=== PATIENT | male | born 1955 | race Caucasian/White ===

== ENCOUNTER → 2020-10-03 | Outpatient (CLI) | payer OTHER ==
--- NOTE | 2020-10-03 12:58 | XR ---
EXAMINATION TYPE: XR chest 2V DATE OF EXAM: 10/03/2020 COMPARISON: CT 05/01/2015 CT chest HISTORY: Hernia, presurgical chest x-ray TECHNIQUE: Frontal and lateral views of the chest are obtained. FINDINGS: Heart size is within normal limits. No focal consolidation, pneumothorax or pleural effusi on. Minimal linear scarring at the left lateral chest. Osseous structures show mild degenerative falcon ges. Hyperaeration lungs and flattening of the diaphragms suggestive of COPD. IMPRESSION: 1. Findings are suggestive of COPD. No acute pulmonary disease.
== END | disposition home or self-care (01) ==
LOC: RADXRMAIN 12:30
PROVIDERS: ATTEND Surgery Plastic and Reconstructive Surgery
DX: R94.31 Abnormal electrocardiogram [ECG] [EKG] (principal); K46.9 Unspecified abdominal hernia without obstruction or gangrene
CPT/HCPCS: 71046; 93005

== ENCOUNTER → 2020-10-11 | Outpatient (CLI) | payer MEDICAID ==
--- NOTE | 2020-10-11 11:03 | CT ---
EXAMINATION TYPE: CT abdomen pelvis w con DATE OF EXAM: 10/11/2020 COMPARISON: NONE HISTORY: 65-year-old male K56.609, Intestinal obstruction TECHNIQUE: Contiguous axial scanning of the abdomen and pelvis following administration of 100 ml Iso yasmany 300 IV contrast. Delayed images through the kidneys and coronal/sagittal reconstructions perform ed. CT DLP: 1928.50 mGycm Automated exposure control for dose reduction was used. FINDINGS: Heart normal size without pericardial effusion. Lung bases clear without pleural effusion. No focal liver lesion or biliary ductal dilatation. Portal venous system is patent. Small layering calculi within the nondistended gallbladder. Adrenal glands, spleen, and pancreas within normal limits. Bilateral renal cysts measuring up to 5.5 cm on the right and 4.2 cm on the left. Nonobstructive 5 mm left midpole renal calculus. No hydronephrosis on either side. There is an umbilical hernia containing a loop of small bowel. Oral contrast has progressed to the sp lenic flexure of the colon. Some of the small bowel loops may measure at the upper limits of normal a t 2.8 cm but no abnormal dilatation is otherwise seen. Normal appendix. Mild stool burden. Sigmoid diverticulosis. No pericolonic inflammatory change. No mesenteric or retroperitoneal lymphadenopathy. Moderate circumferential bladder wall thickening. Prostate gland is enlarged measuring 6.6 cm wide wi th areas of heterogeneous enhancement within, for example, axial image 76. No abnormal fluid collecti on in the pelvis or pelvic lymphadenopathy. Bones: Moderate degenerative change of the hips. Tiny sclerotic foci in both acetabula and medial rig ht iliac bone likely bone islands. No osseous destructive process. IMPRESSION: 1. INGESTED ORAL CONTRAST HAS MADE ITS WAY TO THE SPLENIC FLEXURE OF THE COLON. NO DISCRETE BOWEL OBS TRUCTION IS IDENTIFIED. HOWEVER, THERE IS a small umbilical hernia containing a loop of small bowel a nd some of the mid abdominal small bowel loops are distended to the upper limits of normal at 2.8 cm. A mild relative partial obstruction is possible. 2. Moderate circumferential bladder wall thickening could represent chronic bladder wall hypertrophy or cystitis. The prostate gland is enlarged measuring 6.6 cm. Areas of heterogeneous prostate enhance ment could reflect BPH or underlying foci of prostate cancer. Correlate with PSA values and further c linical assessment as indicated. 3. Cholelithiasis, benign bilateral renal cysts measuring up to 5.5 cm, nonobstructive 5 mm left janet l calculus, and sigmoid diverticulosis.
== END | disposition home or self-care (01) ==
LOC: RADCTMAIN 07:27
PROVIDERS: ATTEND Surgery Plastic and Reconstructive Surgery
DX: K56.609 Unspecified intestinal obstruction, unspecified as to partial versus complete obstruction (principal); K57.30 Diverticulosis of large intestine without perforation or abscess without bleeding; K80.20 Calculus of gallbladder without cholecystitis without obstruction; N20.0 Calculus of kidney; N28.1 Cyst of kidney, acquired; N40.0 Benign prostatic hyperplasia without lower urinary tract symptoms; K42.9 Umbilical hernia without obstruction or gangrene
CPT/HCPCS: 74177; Q9967

== ENCOUNTER → 2020-12-08 | Day surgery (SDC) | payer MEDICAID ==
[2020-12-05 10:27] VITALS: BMI 24.1
[~2020-12-08] MED LIST: ACETAMINOPHEN TAB 500 MG TAB PO PRN; BUPIVACAINE (PF) 0.25% 30 ML VIAL SQ ONE; DEXAMETHASONE SOD PHOSPHATE 4 MG/ML 1 ML VIAL IV ONE; DEXAMETHASONE SOD PHOSPHATE 4 MG/ML 1 ML VIAL IVP ONE; DEXAMETHASONE SOD PHOSPHATE 4 MG/ML 1 ML VIAL ONE; GLYCOPYRROLATE 0.2 MG/ML 2 ML VIAL ONE; HEPARIN SODIUM,PORCINE 5,000 UNIT/ML 1 ML VIAL SQ ONE; HEPARIN SODIUM,PORCINE/PF 5,000 UNIT/0.5 ML SYRINGE SQ PRN; HYDROcodone/APAP 5-325MG 1 EACH TAB PO PRN; HYDROmorphone 0.5 MG/0.5 ML SYRINGE IVP PRN; KETOROLAC 15 MG/ML 1 ML VIAL IVP PRN; LACTATED RINGERS 1,000 ML IV SCH; LIDOCAINE 1% INJ 10MG/ML (20 ML MDV) ONE; MIDAZOLAM 2 MG/2 ML VIAL IV ONE; MIDAZOLAM 2 MG/2 ML VIAL IV PRN; NEOSTIGMINE 1 MG/ML 10 ML VIAL ONE; ONDANSETRON 4 MG/2 ML VIAL IVP ONE; PHENYLEPHRINE-0.9% NACL SYG 1,000 MCG/10 ML SYRINGE ONE; PROPOFOL 10 MG/ML 20 ML VIAL IV ONE; ROCURONIUM 10 MG/ML (5 ML VIAL) IV ONE; ROPIVACAINE 5 MG/ML 30 ML VIAL ONE; SCOPOLAMINE 1.5MG/72HR PATCH TRANSDERM ONE; SUCCINYLCHOLINE CHLORIDE 100 MG/5 ML SYR IV ONE; TAMSULOSIN 0.4 MG CAP.ER.24H PO PRN; fentaNYL (PF) 50 MCG/ML 2 ML AMP ONE
[2020-12-08 06:26] VITALS: TEMP 97.8
[2020-12-08 07:40] LABS: HCT 45.6 % (39.0-53.0); HGB 15.8 gm/dL (13.0-17.5); MCH 31.1 pg (25.0-35.0); MCHC 34.7 g/dL (31.0-37.0); MCV 89.7 fL (80.0-100.0); Platelet Count 266 k/uL (150-450); RBC 5.09 m/uL (4.30-5.90); RDW 12.7 % (11.5-15.5)
--- NOTE | 2020-12-08 07:40 | P.GSHP ---
History of Present Illness H&P Date: 12/08/20 CHIEF COMPLAINT: Ventral hernia HISTORY OF PRESENT ILLNESS: The patient is a 65-year-old male who presents with a history of swelling and pain along the abdomen from a hernia. Now he presents for surgical intervention. PAST MEDICAL HISTORY: Please see list. PAST SURGICAL HISTORY: Please see list. MEDICATIONS: Please see list. ALLERGIES: Please see list. SOCIAL HISTORY: No illicit drug use FAMILY HISTORY: No reports of Crohn disease or ulcerative colitis. REVIEW OF ORGAN SYSTEMS: CONSTITUTIONAL: No reports of fevers or chills. No reports of weight loss despite prior attempts. GI: Denies any blood in stools or constipation. PHYSICAL EXAM: VITAL SIGNS: Stable GENERAL: Well-developed pleasant male in no acute distress. HEENT: No scleral icterus. Extraocular movements grossly intact. Moist buccal mucosa. NECK: Supple without lymphadenopathy. CHEST: Unlabored respirations. Equal bilateral excursions. CARDIOVASCULAR: Regular rate and rhythm. Distal 2+ pulses. ABDOMEN: Soft, nondistended. Palpable defect of the abdomen. No peritoneal signs. MUSCULOSKELETAL: No clubbing, cyanosis, or edema. ASSESSMENT: 1. Ventral hernia PLAN: 1. Recommend proceeding with robotic ventral hernia repair with mesh. 2. Benefits and risks of surgical intervention was discussed including possibility of open technique. 3. DVT prophylaxis. 4. Antibiotic prophylaxis. 5. Non necrotic pain management including abdominal wall blocks described Past Medical History Past Medical History: Hypertension History of Any Multi-Drug Resistant Organisms: None Reported Additional Past Surgical History / Comment(s): colonoscopy Past Anesthesia/Blood Transfusion Reactions: No Reported Reaction Smoking Status: Current every day smoker - Past Family History Mother Family Medical History: Deep Vein Thrombosis (DVT) Medications and Allergies Home Medications Medication Instructions Recorded Confirmed Type amLODIPine [Norvasc] 2.5 mg PO PC-SUPPER 12/06/20 12/06/20 History Allergies Allergy/AdvReac Type Severity Reaction Status Date / Time onion Allergy Anaphylaxis Verified 12/08/20 06:19 Surgical - Exam Vital Signs Temp Pulse Resp BP Pulse Ox 97.8 F 83 16 140/65 83 L 12/08/20 06:24 12/08/20 06:24 12/08/20 06:24 12/08/20 06:24 12/08/20 06:24
--- NOTE | 2020-12-08 07:54 | P.ANPRN ---
Procedure Note - Anesthesia - Nerve Block Performed Bilateral Erector Spinae Single Time Out Performed: Yes Date of Procedure: 12/08/20 Procedure Start Time: 07:04 Procedure Stop Time: :17 Location of Patient: PreOp Indication: Acute Post-Operative Pain, Requested by Surgeon Sedation Type: Sedate with meaningful contact maintained Preparation: Sterile Prep, Sterile Dressing Position: Prone Catheter: None Needle Types: Pajunk Needle Gauge: 20 Ultrasound used to visualize needle placement: Yes Ultrasound used to observe medication spread: Yes Injectate: Other (see comment) (Ropivacaine 0.25% 30 ml + decadron 4 mg per side) Blood Aspirated: No Pain Paresthesia on Injection Noted: No Resistance on Injection: Normal Image Stored and Saved: Yes Events: Uneventful and Well Tolerated
[2020-12-08 07:59] LABS: ALT 15 U/L (4-49); AST 24 U/L (17-59); African American GFR (CKD) >90 (>60 ml/min/1.73 sqM); Albumin 3.8 g/dL (3.5-5.0); Alkaline Phosphatase 72 U/L (38-126); Anion Gap 7 mmol/L; Blood Urea Nitrogen 9 mg/dL (9-20); Calcium 9.1 mg/dL (8.4-10.2); Carbon Dioxide 26 mmol/L (22-30); Chloride 108 mmol/L (98-107); Glucose 99 mg/dL (74-99); Non-African American GFR(CKD) >90 (>60 ml/min/1.73 sqM); Potassium 3.8 mmol/L (3.5-5.1); Sodium 141 mmol/L (137-145); Total Bilirubin 0.4 mg/dL (0.2-1.3); Total Protein 6.3 g/dL (6.3-8.2)
--- NOTE | 2020-12-08 09:29 | P.OP ---
Date of Procedure: 12/08/20 Description of Procedure: SURGEON: EMELYN XIE MD PREOPERATIVE DIAGNOSES: 1. Initial ventral hernia/umbilical hernia without incarceration 2. Hypertensive heart disease 3. Tobacco abuse disorder POSTOPERATIVE DIAGNOSES: 1. Initial ventral hernia/umbilical hernia without incarceration 2. Hypertensive heart disease 3. Tobacco abuse disorder OPERATION: 1. Robotic-assisted da Jennie Xi laparoscopic repair of initial umbilical hernia with mesh, ventralight ST mesh 11.4 cm Anesthesia: GETA, regional, local Estimated Blood Loss (ml): 5 Pathology: None. COMPLICATIONS: None. Operative Findings: 1. Umbilical hernia defect 3 cm 2. Fascia repaired using #1 V-lock suture INDICATIONS: The patient is a 65-year-old male who presents with symptomatic umbilical hernia. Surgical intervention with laparoscopic versus robotic and open techniques were reviewed. Placement of mesh was also reviewed. Benefits and risks were thoroughly described. Informed consent was obtained. DESCRIPTION OF PROCEDURE: The patient was brought into the operating room and laid in supine position. After general induction, the abdomen had been prepped and draped in standard sterile fashion. Ioban draping was also placed. Prior to incision, a timeout protocol was confirmed with surgical team regarding the patient's name including procedures to be performed. The robot was primed prior to the procedure. A field block using local anesthetic was placed along hernia site including the proposed port sites. Initial incision was made with an #11 blade along the left upper quadrant. A 0 degree 5 mm laparoscopic trocar entry was performed and insufflated. Three 8 mm ports were placed along the left lateral abdominal wall under direct localization after exchanging the 5-mm for an 8 mm port. Placements of the ports were 15 cm from the target anatomy and 10 cm apart. An accessory 12 mm port was placed at the left upper quadrant for exchange of mesh including sutures. The [employer] Xi robot was previously primed, prepped and draped then docked from the right side of the patient onto the left side of the patient. I then sat at the robot [employer] console where working arms of the robot including Bovie cautery connected to robotic scissors, needle patrol driver, and graspers placed by the special events assistant. Incarcerated omental contents were found along the umbilicus. Fascial defect was found umbilical hernia defect 3 cm. The hernia defect was oversewn using #1 nonabsorbable V-lock suture for each defect separately with fascial imbrication x 2. Next, ventralight ST mesh 11.4 cm was placed with the rough side towards the abdominal wall as to cover the epigastric including umbilical defect. 2-0 VLOC 9 inch non-absorbable sutures were used to fixate the mesh. A final endoscopic imaging was obtained. All instruments and pneumoperitoneum were evacuated from the abdominal cavity. The da Jennie Xi robot was undocked from the patient. I re-scrubbed into the case for closure of incisions. The fascia of the 12-mm port was probed and less than 8-mm in size. The inci sions were reapproximated using 4-0 Monocryl in an interrupted subcuticular fashion. Liquid glue was applied to the skin after cleansing the skin with normal saline and dilute hydrogen peroxide. An abdominal binder was placed. An umbilical dressing was placed prior. At the end of the procedure, needle, sponge, and instrument count had been verified correct by medical surgical tech. The patient was taken to the postanesthesia care unit in stable condition. Plan - Discharge Summary Discharge Rx Participant: Yes New Discharge Prescriptions: New Ibuprofen [Motrin] 600 mg PO Q8HR PRN #30 tab PRN Reason: Pain Ibuprofen [Motrin] 600 mg PO Q8HR PRN #30 tab PRN Reason: Pain Acetaminophen Tab [Tylenol Tab] 1,000 mg PO Q6HR PRN #30 tablet PRN Reason: Pain Acetaminophen Tab [Tylenol Tab] 1,000 mg PO Q6HR PRN #30 tablet PRN Reason: Pain Continue amLODIPine [Norvasc] 2.5 mg PO PC-SUPPER Discharge Medication List amLODIPine [Norvasc] 2.5 mg PO PC-SUPPER 12/06/20 [History] Acetaminophen Tab [Tylenol Tab] 1,000 mg PO Q6HR PRN #30 tablet 12/08/20 [Rx] Acetaminophen Tab [Tylenol Tab] 1,000 mg PO Q6HR PRN #30 tablet 12/08/20 [Rx] Ibuprofen [Motrin] 600 mg PO Q8HR PRN #30 tab 12/08/20 [Rx] Ibuprofen [Motrin] 600 mg PO Q8HR PRN #30 tab 12/08/20 [Rx] Follow up Appointment(s)/Referral(s): Emelyn Xie MD [STAFF PHYSICIAN] - 12/14/20 Patient Instructions/Handouts: *[facility] - Managing Your Pain After Surgery Without Opioids, *[facility] - (Anesthesia) Discharge Instructions Outpatient Surgery, Laparoscopic Herniorrhaphy (DC), Ventral Hernia Repair (GEN) Activity/Diet/Wound Care/Special Instructions: DO NOT REMOVE UMBILICAL DRESSING. Using antibacterial soap. No lifting over 4 pounds 4 weeks, Jan 08September shower. No bathtub soaks for 2 weeks, Dec 22 Wear abdominal binder daily for comfort except for showering. Use ice along incisions for today to prevent swelling. Take tylenol, aleve/ibuprofen, simethicone scheduled for 3 days for best pain relief Discharge Disposition: HOME SELF-CARE
[2020-12-08 10:01] VITALS: RESP 17
[2020-12-08 10:16] VITALS: BP 109/62; PULSE 69
== END | disposition home or self-care (01) ==
LOC: OR 06:02
PROVIDERS: ATTEND Surgery Plastic and Reconstructive Surgery
DX: K43.9 Ventral hernia without obstruction or gangrene (principal); F17.210 Nicotine dependence, cigarettes, uncomplicated; I10 Essential (primary) hypertension; Z79.899 Other long term (current) drug therapy
CPT/HCPCS: 49652; S2900; 80053; 85027

== ENCOUNTER → 2024-08-03 | Outpatient (CLI) | payer MEDICARE ==
--- NOTE | 2024-08-03 15:32 | XR ---
EXAMINATION TYPE: XR chest 2V DATE OF EXAM: 08/03/2024 3:18 PM COMPARISON: 10/03/2020 CLINICAL INDICATION: Male, 68 years old with history of R05.3 CHRONIC COUGH: Shortness of breath TECHNIQUE: XR chest 2V views of the chest are obtained. FINDINGS: Scattered senescent parenchymal changes noted. Hyperinflation compatible with COPD. No evidence for infiltrate. No evidence for atelectasis. Heart size is stable. Mediastinal structures are stable and grossly unremarkable. No evidence for hilar prominence. Degenerative changes dorsal spine. IMPRESSION: 1. No evidence for acute pulmonary disease. [facility], , 08/03/2024 3:30 PM
== END | disposition home or self-care (01) ==
LOC: RADXRMAIN 15:08
PROVIDERS: ATTEND Family Medicine
DX: R05.3 Chronic cough (principal)
CPT/HCPCS: 71046

== ENCOUNTER → 2024-08-23 | Outpatient (CLI) | payer MEDICARE ==
--- NOTE | 2024-08-23 07:11 | MR ---
EXAMINATION TYPE: MR Prostate wo/w con DATE OF EXAM: 08/23/2024 COMPARISON: None. INDICATION: Elevated PSA PSA: 13.8 ng/ml in July Recent Biopsy and Date: none Pathology Report (If Applicable): n/a TECHNIQUE: Examination was performed using a 3T MRI without an endorectal coil. Multiparametric imaging was perf ormed with T2 mutliplanar sequences, axial diffusion weighted imaging and dynamic contrast enhanced i maging, utilizing 7 mL intravenous Gadobutrol gadolinium contrast. FINDINGS: PROSTATE VOLUME: 5.9 cm SI x 4.6 cm AP x 6.5 cm LR Vol= 92.4 cc PSA DENSITY: 0.15 ng/ml/cc Significantly enlarged prostate consistent with BPH is present. Some linear areas of slightly diminis hed signal on ADC mapping in the peripheral zone bilaterally are present. No areas of marked diminish ed signal are identified. No areas of significant increased signal on diffusion-weighted imaging are present. Transitional zone hypertrophy with bilateral nodules is identified. No suspicious areas of m arked diminished signal on T2-weighted images. Highest PI-RADS equals 2. High positioned left testicle is seen. Urinary bladder is within normal limits. No destructive osseou s lesions are noted. IMPRESSION: Markedly enlarged prostate consistent with BPH. Consider imaging guided random biopsy if PSA continues to rise. A focus of clinically significant cancer is not identified. Highest Assessment Category: 2 MRI Stage: T0 N0 M0 based on review of pelvic images. False negative rates for MRI range from 5-20% depending on risk profile. Assessment Categories: 1 ? Very low (clinically significant cancer is highly unlikely to be present) 2 ? Low (clinically significant cancer is unlikely to be present) 3 ? Intermediate (the presence of clinically significant cancer is equivocal) 4 ? High (clinically significant cancer is likely to be present) 5 ? Very high (clinically significant cancer is highly likely to be present) [facility], , 08/23/2024 7:09 AM
== END | disposition home or self-care (01) ==
LOC: RADMRIMAIN 06:04
PROVIDERS: ATTEND Family Medicine
DX: N40.0 Benign prostatic hyperplasia without lower urinary tract symptoms (principal); R97.20 Elevated prostate specific antigen [PSA]
CPT/HCPCS: 72197; A9585

== ENCOUNTER → 2024-11-05 | Day surgery (SDC) | payer MEDICARE ==
[~2024-11-05] MED LIST changes: -ACETAMINOPHEN TAB 500 MG TAB PO PRN; -BUPIVACAINE (PF) 0.25% 30 ML VIAL SQ ONE; -DEXAMETHASONE SOD PHOSPHATE 4 MG/ML 1 ML VIAL IV ONE; -DEXAMETHASONE SOD PHOSPHATE 4 MG/ML 1 ML VIAL IVP ONE; -DEXAMETHASONE SOD PHOSPHATE 4 MG/ML 1 ML VIAL ONE; -GLYCOPYRROLATE 0.2 MG/ML 2 ML VIAL ONE; -HEPARIN SODIUM,PORCINE 5,000 UNIT/ML 1 ML VIAL SQ ONE; -HEPARIN SODIUM,PORCINE/PF 5,000 UNIT/0.5 ML SYRINGE SQ PRN; -HYDROcodone/APAP 5-325MG 1 EACH TAB PO PRN; -HYDROmorphone 0.5 MG/0.5 ML SYRINGE IVP PRN; -KETOROLAC 15 MG/ML 1 ML VIAL IVP PRN; -LACTATED RINGERS 1,000 ML IV SCH; -MIDAZOLAM 2 MG/2 ML VIAL IV ONE; -MIDAZOLAM 2 MG/2 ML VIAL IV PRN; -NEOSTIGMINE 1 MG/ML 10 ML VIAL ONE; -ONDANSETRON 4 MG/2 ML VIAL IVP ONE; -PHENYLEPHRINE-0.9% NACL SYG 1,000 MCG/10 ML SYRINGE ONE; -ROCURONIUM 10 MG/ML (5 ML VIAL) IV ONE; -ROPIVACAINE 5 MG/ML 30 ML VIAL ONE; -SCOPOLAMINE 1.5MG/72HR PATCH TRANSDERM ONE; -SUCCINYLCHOLINE CHLORIDE 100 MG/5 ML SYR IV ONE; -TAMSULOSIN 0.4 MG CAP.ER.24H PO PRN; -fentaNYL (PF) 50 MCG/ML 2 ML AMP ONE
[2024-11-05 07:10] VITALS: TEMP 98
[2024-11-05] MEDS: IV FLUID CONTINUATION 1,000 ML IV ONE (07:20)
[2024-11-05] MEDS: LACTATED RINGERS 1,000 ML IV SCH (07:21)
--- NOTE | 2024-11-05 08:26 | P.PCN ---
Date of Procedure: 11/05/24 Procedure(s) Performed: Brief history: Patient is a pleasant 69-year-old white male scheduled for an elective upper endoscopy as well as colonoscopy as a part of evaluation of epigastric discomfort, early satiety and screening for colon cancer Procedure performed: Esophagogastroduodenoscopy with biopsy Colonoscopy with snare polypectomy and Endo Clip placement Preoperative diagnosis: Epigastric discomfort, early satiety Screening for colon cancer Anesthesia: MAC Procedure: After informed consent was obtained from the patient was brought into the endoscopy unit and IV sedation was administered by anesthesia under continuous monitoring. Initially upper endoscopy was done. The Olympus GF 160 video endoscope was inserted inserted into the mouth and esophagus intubated without any difficulty and was gradually advanced into the stomach and duodenum and carefully examined. The bulb and second part of the duodenum had erythema and friability consistent with duodenitis.. The scope was then withdrawn into the stomach adequately insufflated with air and upon careful examination the antrum and body, and mild diffuse gastritis and biopsies were done from this area. Mucosa of the cardia and fundus appeared normal. The scope was then withdrawn into the esophagus. The GE junction was located at 40 cm to the incisors. It appeared irregular with no erythema erosions or ulcerations. Rest of the esophagus appeared normal. Patient tolerated the procedure well. At this time the patient continued to remain sedation. Initial digital rectal examination was normal. Olympus CF 160 video colonoscope was then inserted into the rectum and gradually advanced to the cecum without any difficulty. Careful examination was performed as the scope was gradually being withdrawn. The prep was excellent. The cecum, ascending colon, appeared normal. The hepatic flexure there was a 2.5 cm broad-based polyp that was removed by piecemeal snare polypectomy followed by Endo Clip placement and complete polypectomy accomplished. In the transverse colon there was a 1 cm and a 2 cm polyp removed by snare polypectomy. Rest of the transverse colon, descending colon, sigmoid colon and rectum appeared normal. Moderate sigmoid diverticulosis. Retroflexion was performed in the rectum and no lesions were noted. Patient tolerated the procedure well. Impression: Upper endoscopy revealed mild diffuse gastritis and moderate duodenitis involving the duodenal bulb Colonoscopy revealed: 2.5 cm broad-based hepatic flexure polyp status post piecemeal snare polypectomy followed by Endo Clip placement and complete polypectomy accomplished 1 cm x 2 cm transverse colon polyp status post snare polypectomy Moderate sigmoid diverticulosis Recommendations: Findings of this examination were discussed with the patient as well as his family. He was advised to follow with the biopsy results. If the biopsy reveals adenoma, recommended repeat colonoscopy in 3 years.
[2024-11-05 09:06] VITALS: BP 185/94; PULSE 80; RESP 16
== END ==
LOC: ORWHC2ENDO 06:46
PROVIDERS: ATTEND Internal Medicine Gastroenterology
DX: Z12.11 Encounter for screening for malignant neoplasm of colon (principal); K29.50 Unspecified chronic gastritis without bleeding; B96.81 Helicobacter pylori [H. pylori] as the cause of diseases classified elsewhere; D12.3 Benign neoplasm of transverse colon; K29.80 Duodenitis without bleeding; K57.30 Diverticulosis of large intestine without perforation or abscess without bleeding; I10 Essential (primary) hypertension; J44.9 Chronic obstructive pulmonary disease, unspecified; F17.210 Nicotine dependence, cigarettes, uncomplicated; Z79.51 Long term (current) use of inhaled steroids; Z88.0 Allergy status to penicillin; Z98.890 Other specified postprocedural states
CPT/HCPCS: 88305; 88342; 45385; 43239; J2003; J2704